=== PATIENT | female | born 1955 | race Caucasian/White ===

== ENCOUNTER → 2017-12-04 | Outpatient (CLI) | payer MEDICARE, OTHER ==
[~2017-12-04] VITALS: Ht 157.5 cm; Wt 146.0 kg
[~2017-12-04] MED LIST: HYDR25TA PO; LORA10TA7 PO; LOSA50TA2 PO; SIMV-260 PO
[2017-12-04 12:15] VITALS: BP 169/91
== END | disposition home or self-care (01) ==
LOC: SRCNTR 12:02
PROVIDERS: ATTEND Internal Medicine
DX: G47.33 Obstructive sleep apnea (adult) (pediatric) (principal); J45.909 Unspecified asthma, uncomplicated; I10 Essential (primary) hypertension; K21.9 Gastro-esophageal reflux disease without esophagitis; R32 Unspecified urinary incontinence
CPT/HCPCS: G0463

== ENCOUNTER → 2017-12-10 | Outpatient (CLI) | payer MEDICARE, OTHER | END | disposition home or self-care (01) | LOC: RESP 11:25 | PROVIDERS: ATTEND Internal Medicine | DX: J45.909 Unspecified asthma, uncomplicated (principal) | CPT/HCPCS: 94010; 94726; 94727; 94729 ==

== ENCOUNTER 2025-07-07 12:07 | Inpatient (IN) | payer MEDICARE, OTHER ==
[~2025-07-07] VITALS: Ht 157.5 cm; Wt 141.0 kg
[~2025-07-07 12:07] MED LIST changes: +ALEN70TA80 PO; +APIX5TAB PO; +ATOR40TA71 PO; +FURO40TA6 PO; -HYDR25TA PO; +LEVO-72 PO; -LORA10TA7 PO; -LOSA50TA2 PO; +METO25 PO; -SIMV-260 PO
[2025-07-07 15:32] LABS: PLATELET COUNT (AUTO) 217 K/uL (150-450); RED BLOOD CELL COUNT(AUTO) 4.84 MIL/uL (4.00-5.20); RED CELL DISTRIBUTION WIDTH 14.4 % (11.5-14.5); WHITE BLOOD COUNT (AUTO) 8.5 K/uL (4.5-11.0)
[2025-07-07 15:41] LABS: CALCIUM, TOTAL 9.8 mg/dL (8.8-10.5); CREATININE 0.97 mg/dL (0.60-1.30); GLOMERULAR FILTR. RATE CALC 56.0 mL/min (>60); GLUCOSE,RANDOM 93.0 mg/dL (70-110); SODIUM SERUM 140.0 mmol/L (136-145); UREA NITROGEN, BLOOD 14.0 mg/dL (7-18)
[2025-07-07 16:56] LABS: LACTIC ACID 0.9 mmol/L (0.4-2.0)
[2025-07-07] MEDS: CefTRIAXone 1 GM/DEXTROSE 50 ML IV ONE (17:48)
[2025-07-07] MEDS: VANCOMYCIN 1.75GM/WATER(PEG) 350 ML IV ONE (18:13)
[2025-07-07] MEDS: ACETAMINOPHEN 500 MG TABLET PO ONE (19:06)
[2025-07-07] MEDS: OxyCODONE HCL 5 MG IR TABLET PO ONE (21:26)
[2025-07-07 21:55] VITALS: BP 133/113; PULSE 93; RESP 19; TEMP 98.1; O2SAT 98
[2025-07-07 22:15] VITALS: BP 119/91; PULSE 75; RESP 20; TEMP 98.7; O2SAT 98
[2025-07-08] VITALS (9 sets, daily range): BP systolic 102–124; BP diastolic 70–98; PULSE 71–144; RESP 18–20; TEMP 97.3–98.2; O2SAT 94–97
[2025-07-08] MEDS ORDERED: MAGNESIUM HYDROXIDE SUSPENSION 30 ML UDCUP PO PRN (02:30)
[2025-07-08] MEDS ORDERED: MORPHINE SULFATE 2 MG/ML SYRINGE IVP PRN (02:30)
[2025-07-08] MEDS ORDERED: ZOLPIDEM TARTRATE 5 MG TABLET PO PRN (02:30)
[2025-07-08] MEDS ORDERED: IPRATROPIUM BROMIDE 0.5 MG/2.5 ML NEB SOLUTION NEB PRN (02:30)
[2025-07-08] MEDS ORDERED: ALBUTEROL SULFATE 2.5 MG/0.5 ML NEB SOLUTION NEB PRN (02:30)
[2025-07-08] MEDS ORDERED: BISACODYL 10 MG RECTAL RECTAL SUPPOSITORY PR PRN (02:30)
[2025-07-08] MEDS: HYDROCODONE/ACETAMINOPHEN 5-325 MG TABLET PO PRN (03:47)
[2025-07-08] MEDS: AMIODARONE HCL 150 MG in DEXTROSE 5%-WATER 97 ML IV ONE (04:24)
[2025-07-08] MEDS: AMIODARONE HCL 360 MG in DEXTROSE 5%-WATER 242.8 ML IV ONE (04:34)
[2025-07-08 06:17] LABS: PLATELET COUNT (AUTO) 189 K/uL (150-450); RED BLOOD CELL COUNT(AUTO) 4.49 MIL/uL (4.00-5.20); RED CELL DISTRIBUTION WIDTH 14.7 % (11.5-14.5); WHITE BLOOD COUNT (AUTO) 7.1 K/uL (4.5-11.0)
[2025-07-08] MEDS ORDERED: ALENDRONATE SODIUM 70 MG TABLET PO SCH (06:30)
[2025-07-08 06:52] LABS: CALCIUM, TOTAL 9.6 mg/dL (8.8-10.5); CREATININE 0.97 mg/dL (0.60-1.30); GLOMERULAR FILTR. RATE CALC 56.0 mL/min (>60); GLUCOSE,RANDOM 138.0 mg/dL (70-110); SODIUM SERUM 139.0 mmol/L (136-145); UREA NITROGEN, BLOOD 16.0 mg/dL (7-18)
[2025-07-08] MEDS ORDERED: SODIUM CHLORIDE 0.9% 250 ML IV ONE (08:33)
[2025-07-08] MEDS: FUROSEMIDE 40 MG TABLET PO SCH (08:43)
[2025-07-08] MEDS: ATORVASTATIN CALCIUM 40 MG TABLET PO SCH (08:43)
[2025-07-08] MEDS: VANCOMYCIN 1GM/WATER(PEG/NADA) 200 ML IV SCH (08:43)
[2025-07-08] MEDS: PANTOPRAZOLE SODIUM 40 MG DR TABLET PO SCH (08:43)
[2025-07-08] MEDS: METOPROLOL TARTRATE 25 MG TABLET PO SCH (08:43)
[2025-07-08] MEDS: APIXABAN 5 MG TABLET PO SCH (08:43)
[2025-07-08] MEDS: AMIODARONE HCL 540 MG in DEXTROSE 5%-WATER 250 ML IV ONE (11:12)
[2025-07-08] MEDS: PERFLUTREN PROTEIN-A MICROSPHERES 0.22 MG/ML 3 ML VIAL IVP ONE (12:08)
[2025-07-08] MEDS: METOPROLOL TARTRATE 5 MG/5 ML VIAL IVP ONE (14:39)
[2025-07-08] MEDS: PIPERACILLIN/TAZO 3.375 GM/D5W 50 ML IV SCH (15:54)
[2025-07-08] MEDS: ONDANSETRON HCL 4 MG/2 ML VIAL IVP PRN (15:54)
[2025-07-08] MEDS: DILTIAZEM HCL 5 MG/ML 5 ML VIAL IVP ONE (17:06)
[2025-07-08] MEDS: METOPROLOL TARTRATE 50 MG TABLET PO SCH (20:45)
[2025-07-08] MEDS: VANCOMYCIN 1.25 GM/WATER(PEG) 250 ML IV SCH (21:16)
[2025-07-08] MEDS: FUROSEMIDE 40 MG/4 ML VIAL IVP SCH (21:17)
[2025-07-09 00:16] VITALS: BP 109/64; PULSE 98; RESP 20; TEMP 97.3; O2SAT 95
[2025-07-09 04:23] VITALS: BP 110/76; PULSE 100; RESP 18; TEMP 98.1; O2SAT 98
[2025-07-09] MEDS: AMIODARONE HCL 750 MG in DEXTROSE 5%-WATER 485 ML IV SCH (04:41)
[2025-07-09 06:26] LABS: ASPARTATE AMINOTRANSFERASE 16.0 U/L (15-37); CALCIUM, TOTAL 9.8 mg/dL (8.8-10.5); CREATININE 1.14 mg/dL (0.60-1.30); GLOMERULAR FILTR. RATE CALC 47.0 mL/min (>60); GLUCOSE,RANDOM 99.0 mg/dL (70-110); SODIUM SERUM 137.0 mmol/L (136-145); TOTAL PROTEIN, SERUM 7.1 g/dL (6.4-8.2); UREA NITROGEN, BLOOD 19.0 mg/dL (7-18)
[2025-07-09 06:35] LABS: PLATELET COUNT (AUTO) 172 K/uL (150-450); RED BLOOD CELL COUNT(AUTO) 4.63 MIL/uL (4.00-5.20); RED CELL DISTRIBUTION WIDTH 14.4 % (11.5-14.5); WHITE BLOOD COUNT (AUTO) 7.7 K/uL (4.5-11.0)
[2025-07-09 07:13] LABS: TROPONIN I-HIGH SENSITIVITY 25 ng/L (<51)
[2025-07-09 07:35] VITALS: BP 103/64; PULSE 114; RESP 18; TEMP 98; O2SAT 97
[2025-07-09] MEDS: LOSARTAN POTASSIUM 25 MG TABLET PO SCH (08:38)
[2025-07-09] MEDS: SPIRONOLACTONE 25 MG TABLET PO SCH (08:38)
[2025-07-09] MEDS: ACETAMINOPHEN 325 MG TABLET PO PRN (08:41)
[2025-07-09] MEDS: EMPAGLIFLOZIN 10 MG TABLET PO SCH (09:00)
[2025-07-09 11:34] VITALS: BP 107/71; PULSE 100; RESP 18; TEMP 98; O2SAT 98
[2025-07-09 16:22] VITALS: BP 116/70; PULSE 101; RESP 18; TEMP 98; O2SAT 97
[2025-07-09] MEDS: SODIUM CHLORIDE 0.9% 250 ML IV ONE (17:10)
[2025-07-09 19:27] VITALS: BP 108/74; PULSE 103; RESP 18; TEMP 98.4; O2SAT 97
[2025-07-09] MEDS ORDERED: METOPROLOL TARTRATE 50 MG TABLET PO SCH (21:00)
[2025-07-09] MEDS: AMIODARONE HCL 200 MG TABLET PO SCH (21:01)
[2025-07-09] MEDS: METOPROLOL TARTRATE 50 MG TABLET PO SCH (21:02)
[2025-07-10 00:11] VITALS: BP 110/75; PULSE 94; RESP 18; TEMP 98.4; O2SAT 96
[2025-07-10 04:42] VITALS: BP 115/73; PULSE 103; RESP 18; TEMP 97.5; O2SAT 97
[2025-07-10 06:27] LABS: PLATELET COUNT (AUTO) 173 K/uL (150-450); RED BLOOD CELL COUNT(AUTO) 4.61 MIL/uL (4.00-5.20); RED CELL DISTRIBUTION WIDTH 14.3 % (11.5-14.5); WHITE BLOOD COUNT (AUTO) 8.5 K/uL (4.5-11.0)
[2025-07-10 06:43] LABS: CALCIUM, TOTAL 9.8 mg/dL (8.8-10.5); CREATININE 1.22 mg/dL (0.60-1.30); GLOMERULAR FILTR. RATE CALC 43.0 mL/min (>60); GLUCOSE,RANDOM 93.0 mg/dL (70-110); SODIUM SERUM 137.0 mmol/L (136-145); UREA NITROGEN, BLOOD 26.0 mg/dL (7-18)
[2025-07-10 07:59] VITALS: BP 110/91; PULSE 76; RESP 18; TEMP 97.7; O2SAT 96
[2025-07-10] MEDS: VANCOMYCIN 1GM/WATER(PEG/NADA) 200 ML IV SCH (09:04)
[2025-07-10] MEDS ORDERED: SODIUM CHLORIDE 0.9% 100 ML ONE (11:14)
[2025-07-10] MEDS ORDERED: IOHEXOL 350 MG/ML 100 ML VIAL ONE (11:14)
[2025-07-10 11:52] VITALS: BP 101/71; PULSE 100; RESP 18; TEMP 97.9; O2SAT 95
[2025-07-10 16:44] VITALS: BP 100/77; PULSE 98; RESP 18; TEMP 98; O2SAT 96
[2025-07-10 20:49] VITALS: BP 92/65; PULSE 92; RESP 20; TEMP 98.1; O2SAT 96
[2025-07-10] MEDS: SODIUM CHLORIDE 0.9% 250 ML IV ONE (21:07)
[2025-07-11] VITALS (7 sets, daily range): BP systolic 103–126; BP diastolic 59–90; PULSE 52–106; RESP 18–20; TEMP 89.2–98.2; O2SAT 96–98
[2025-07-11] MEDS: METOPROLOL SUCCINATE 25 MG ER TABLET PO SCH (08:19)
[2025-07-11] MEDS: FUROSEMIDE 40 MG TABLET PO SCH (08:20)
[2025-07-11] MEDS: *CLINICAL-LEVOFLOXACIN ORAL DOSING CLINICAL ONE (10:53)
[2025-07-11] MEDS: LEVOFLOXACIN 750 MG/D5% WATER 150 ML IV SCH (11:52)
[2025-07-11] MEDS ORDERED: SODIUM CHLORIDE 0.9% 250 ML IV ONE (12:00)
[2025-07-11 12:26] LABS: CALCIUM, TOTAL 9.6 mg/dL (8.8-10.5); CREATININE 1.04 mg/dL (0.60-1.30); GLOMERULAR FILTR. RATE CALC 52.0 mL/min (>60); GLUCOSE,RANDOM 100.0 mg/dL (70-110); SODIUM SERUM 138.0 mmol/L (136-145); UREA NITROGEN, BLOOD 21.0 mg/dL (7-18)
[2025-07-11] MEDS: VANCOMYCIN 1GM/WATER(PEG/NADA) 200 ML IV ONE (13:11)
[2025-07-11] MEDS: METHYL SALICYLATE/MENTHOL 85 GM CREAM TP PRN (17:08)
[2025-07-11] MEDS: VANCOMYCIN 1GM/WATER(PEG/NADA) 200 ML IV SCH (19:54)
[2025-07-12] VITALS (7 sets, daily range): BP systolic 92–121; BP diastolic 60–98; PULSE 63–100; RESP 16–20; TEMP 98.1–98.4; O2SAT 95–99
[2025-07-12 05:50] LABS: PLATELET COUNT (AUTO) 185 K/uL (150-450); RED BLOOD CELL COUNT(AUTO) 4.60 MIL/uL (4.00-5.20); RED CELL DISTRIBUTION WIDTH 13.9 % (11.5-14.5); WHITE BLOOD COUNT (AUTO) 7.8 K/uL (4.5-11.0)
[2025-07-12 06:03] LABS: CALCIUM, TOTAL 9.7 mg/dL (8.8-10.5); CREATININE 1.09 mg/dL (0.60-1.30); GLOMERULAR FILTR. RATE CALC 49.0 mL/min (>60); GLUCOSE,RANDOM 86.0 mg/dL (70-110); SODIUM SERUM 137.0 mmol/L (136-145); UREA NITROGEN, BLOOD 22.0 mg/dL (7-18)
[2025-07-12] MEDS ORDERED: FURO40TA5 PO (11:48)
[2025-07-12] MEDS ORDERED: AMIO200T8 PO (11:48)
[2025-07-12] MEDS ORDERED: METO25XL PO (11:48)
[2025-07-12] MEDS ORDERED: SPIR-37 PO (11:48)
[2025-07-12] MEDS ORDERED: LOSA-417 PO (11:48)
[2025-07-12] MEDS ORDERED: EMPA10TA3 PO (11:48)
[2025-07-12] MEDS ORDERED: LEVO750T68 PO ×2 (11:50→12:16)
[2025-07-12] MEDS ORDERED: CLIN300C58 PO (11:50)
[2025-07-12] MEDS ORDERED: LACT1TAB14 PO (11:50)
[2025-07-12] MEDS: PIPERACILLIN SODIUM/TAZOBACTAM 4.5 GM in DEXTROSE 5%-WATER 100 ML IV SCH (12:50)
[2025-07-13 00:10] VITALS: BP 126/67; PULSE 57; RESP 18; TEMP 98.1; O2SAT 97
[2025-07-13 04:03] VITALS: BP 113/81; PULSE 81; RESP 17; TEMP 97.9; O2SAT 98
[2025-07-13 07:01] LABS: CALCIUM, TOTAL 10.2 mg/dL (8.8-10.5); CREATININE 1.07 mg/dL (0.60-1.30); GLOMERULAR FILTR. RATE CALC 50.0 mL/min (>60); GLUCOSE,RANDOM 92.0 mg/dL (70-110); SODIUM SERUM 137.0 mmol/L (136-145); UREA NITROGEN, BLOOD 22.0 mg/dL (7-18)
[2025-07-13 07:46] VITALS: BP 114/84; PULSE 105; RESP 18; TEMP 97.3; O2SAT 97
[2025-07-13 11:21] VITALS: BP 114/98; PULSE 94; RESP 18; TEMP 97.7; O2SAT 96
== END 2025-07-13 14:35 | disposition home health service (06) | DRG 602 ==
LOC: EMS 12:09 → EDH 17:25 → 6S 21:40 → 5S 07-08 01:40
PROVIDERS: ADMIT Hospitalist; ATTEND Hospitalist
PROC: 05HB33Z Insertion of Infusion Device into Right Basilic Vein, Percutaneous Approach (ICD-10-PCS; principal; 2025-07-12)
DX: L03.115 Cellulitis of right lower limb (principal); I50.23 Acute on chronic systolic (congestive) heart failure; Z68.43 Body mass index [BMI] 50.0-59.9, adult; I11.0 Hypertensive heart disease with heart failure; I48.91 Unspecified atrial fibrillation; E66.01 Morbid (severe) obesity due to excess calories; B95.2 Enterococcus as the cause of diseases classified elsewhere; E78.00 Pure hypercholesterolemia, unspecified; Z79.01 Long term (current) use of anticoagulants
CPT/HCPCS: 36569; 73701; 76881; 76937; 80048; 80053; 80202; 83605; 83735; 83880; 84443; 84484; 85025; 85379; 85651; 86140; 87040; 87070; 87081; 87186; 87205; 99285; C8929; J0282; J0696; J1938; J1956; J2405; J2543; J3490; J7050; J7060